=== PATIENT | female | born 1945 | race Two or more races ===

== ENCOUNTER 2018-03-05 16:29 | Emergency (ER) | payer OTHER ==
[~2018-03-05] VITALS: Ht 157.5 cm; Wt 55.8 kg
[2018-03-05] MEDS ORDERED: ATIVAN1 M1 (17:02)
[2018-03-05] MEDS ORDERED: EFFEXOR XR75 MG (17:03)
== END 2018-03-05 21:06 | disposition home or self-care (01) ==
LOC: ER 16:29
DX: R53.1 Weakness (principal); F32.9 Major depressive disorder, single episode, unspecified; R41.0 Disorientation, unspecified

== ENCOUNTER 2018-05-28 10:22 | Outpatient (CLI) | payer OTHER ==
[~2018-05-28 10:22] MED LIST: ATIVAN1 M1; EFFEXOR XR75 MG
== END 2018-05-28 11:30 | disposition home or self-care (01) ==
LOC: TOM 10:22
DX: R51 Headache (principal)

== ENCOUNTER 2018-08-16 09:34 | Emergency (ER) | payer OTHER ==
[~2018-08-16] VITALS: Ht 167.6 cm; Wt 45.4 kg
[2018-08-16] MEDS ORDERED: ARICEPT5 MG (09:53)
[2018-08-16] MEDS ORDERED: ATIVAN0.5 M1 (09:54)
[2018-08-16] MEDS ORDERED: LEXAPRO5 MG (09:54)
[2018-08-16] MEDS ORDERED: SEROQUEL25 MG (09:54)
== END 2018-08-16 11:02 | disposition home or self-care (01) ==
LOC: ER 09:34
DX: S00.83XA Contusion of other part of head, initial encounter (principal); S40.011A Contusion of right shoulder, initial encounter; W18.39XA Other fall on same level, initial encounter; Y93.89 Activity, other specified; Y92.89 Other specified places as the place of occurrence of the external cause; Y99.8 Other external cause status

== ENCOUNTER 2022-06-19 16:10 | Emergency (ER) | payer OTHER ==
[~2022-06-19] VITALS: Ht 157.5 cm; Wt 70.8 kg
[~2022-06-19 16:10] MED LIST changes: +ARICEPT5 MG; +ATIVAN0.5 M1; +LEXAPRO5 MG; +SEROQUEL25 MG
== END 2022-06-19 18:25 | disposition home or self-care (01) ==
LOC: ER 16:10
DX: M54.59 Other low back pain (principal)